=== PATIENT | female | born 1960 | race Caucasian/White ===

== ENCOUNTER 2018-05-18 05:36 | Observation (INO) ==
--- NOTE | 2018-05-12 10:09 | Anesthesiology Consultation ---
Date of Service May 12, 2018 Assessment & Plan Plan: Note sent to PCP re: abnormal kidney function and pre-op EKG. Per PCP, kidney function is chronic, pt will have OP workup with nephro but this is not a contraindication for surgery. "MEDICALLY CLEARED." Chart Review Chart Review: Acceptable Risk for Surgery and Patient NOT seen in Pre Admission Testing History Surgery Operation Date: 05/18/18 07:30 Proposed Procedures p Robot-Assisted Laparoscopic Fundoplication with - Gordo Woodard MD, FACS s Esophagogastroduodenoscopy - Gordo Woodard MD, FACS Height/Weight Height: 5 ft 5 in Weight: 104.326 kg Allergies Allergy/AdvReac Type Severity Reaction Status Date / Time Cephalosporins Allergy Rash Verified 04/27/18 11:27 Sulfa (Sulfonamide Allergy Anaphylaxis Verified 04/27/18 11:27 Antibiotics) Medications Home Medications Medication Instructions Recorded Confirmed Last Taken alprazolam 1 mg PO HS 04/14/18 04/27/18 04/17/18 apixaban [Eliquis] 5 mg PO BID 04/14/18 04/27/18 04/17/18 atorvastatin 80 mg PO HS 04/14/18 04/27/18 04/17/18 cholecalciferol (vitamin D3) 5,000 unit PO QAM 04/14/18 04/27/18 04/17/18 [Vitamin D3] metformin 1 tab PO BID 04/14/18 04/27/18 04/17/18 paliperidone palmitate [Invega 1 dose IM MONTHLY 04/14/18 04/27/18 03/29/18 Sustenna] pantoprazole 40 mg PO BID 04/14/18 04/27/18 04/18/18 trazodone 100 mg PO HS 04/14/18 04/27/18 04/17/18 Past Medical History Medical History Anxiety Bipolar disorder Deep vein thrombosis LLE - RECURRING DVT - ON ELIQUIS - CAUSE UNK AFTER BLOOD WORK UP (FIRST DX 4/5 YEARS AGO) Depression Diabetes mellitus, type 2 NIDDM GERD (gastroesophageal reflux disease) Hiatal hernia History of anesthesia reaction "SLOW TO WAKE WITH C SECTIONS" Hyperlipidemia Iron deficiency anemia Obesity On anticoagulant therapy ELIQUIS DAILY Shortness of breath on exertion Past Family History Family History Mother Family history of diabetes mellitus Brother Family history of diabetes mellitus Sister Family history of diabetes mellitus Father Family history of diabetes mellitus Sister Family history of diabetes mellitus Brother Family history of diabetes mellitus Brother Family history of diabetes mellitus Family/Other Family history of diabetes mellitus Past Surgical History Surgical History History of bilateral tubal ligation History of section X2 History of cholecystectomy History of colonoscopy History of esophagogastroduodenoscopy (EGD) History of sinus surgery History of total abdominal hysterectomy and bilateral salpingo-oophorectomy Status post myringotomy with tube placement of both ears Social History Smoking Status: Former smoker tobacco type: e-cigarettes Smoking cigarettes per day: DAILY E CIGS Do You Dip or Chew Tobacco: No Hx Alcohol Use: Yes (RARELY) Alcohol type: beer alcohol intake frequency: other Hx Substance Use: No substance use type: does not use Testing Electrocardiogram Date: 05/09/18 Findings: + NSR @ (83) T wave abnormality, possible lateral ischemia. Laboratory Results 05/09/18 WBC: 7.23 H/H: 12.1/37.2 PLATELETS: 260 SODIUM: 141 POTASSIUM: 5.0 CHLORIDE: 106 CO2: 24 BUN: 22.6 CREATININE: 1.73 GLUCOSE: 105
[2018-05-18] MEDS ORDERED: LR 15ML/HR IV SCH (06:00)
[2018-05-18] MEDS ORDERED: ONDANSETRON INJ 2 MG/ML 2 ML VIAL IV PRN ×2 (06:45→12:45)
[2018-05-18] MEDS ORDERED: ATROPINE SULFATE 0.1 MG/ML 10ML SYR IV PRN ×2 (06:45→12:44)
[2018-05-18] MEDS ORDERED: HYDROmorphone INJ 1 MG/ML SYRINGE IV PRN ×2 (06:45→12:45)
[2018-05-18] MEDS ORDERED: fentaNYL citrate 100 MCG/2 ML VIAL IV PRN ×2 (06:45→12:45)
[2018-05-18] MEDS ORDERED: ePHEDrine sulfate 50 MG/ML AMP IV PRN ×2 (06:45→12:44)
--- NOTE | 2018-05-18 06:51 | History & Physical Bridge Note ---
Date of Service May 18, 2018 History & Physical Bridge Note I have examined the patient, reviewed the History & Physical and in the interval since the performance of the History & Physical I have noted the following changes of clinical significance: no changes noted
[2018-05-18] MEDS ORDERED: DEXAMETHASONE SOD INJ 4 MG/ML VIAL ONE (07:08)
[2018-05-18] MEDS ORDERED: MIDAZOLAM HCL 1 MG/ML 2ML VIAL ONE (07:08)
[2018-05-18] MEDS ORDERED: fentaNYL citrate 100 MCG/2 ML VIAL ONE ×2 (07:08→12:38)
[2018-05-18] MEDS ORDERED: GLYCOPYRROLATE 0.2 MG/ML VIAL ONE ×2 (07:08→08:33)
[2018-05-18] MEDS ORDERED: PROPOFOL IV EMULSION 10 MG/ML 20 ML VIAL IV ONE (07:08)
[2018-05-18] MEDS ORDERED: ONDANSETRON INJ 2 MG/ML 2 ML VIAL ONE ×2 (07:08→08:34)
[2018-05-18] MEDS ORDERED: NEOSTIGMINE METHYLSULFATE 5 MG/5 ML SYR ONE (07:08)
[2018-05-18] MEDS ORDERED: LIDOCAINE HCL 2% 2 ML VIAL/AMP(20MG/ML) INFIL ONE (07:08)
[2018-05-18] MEDS ORDERED: CLINDAMYCIN 900 MG in DEXTROSE 5% 100 ML IV ONE (07:15)
[2018-05-18] MEDS ORDERED: BUPIVACAINE LIPOSOME 1.3% 266 MG/20 ML VIAL ONE (07:33)
[2018-05-18] MEDS ORDERED: SODIUM CHLORIDE 0.9% PF 50 ML VIAL ONE (07:33)
[2018-05-18] MEDS ORDERED: BUPIVACAINE 0.5 % 5 MG/1 ML MPF 30ML VIAL ONE (07:33)
[2018-05-18] MEDS ORDERED: PHENYLEPHRINE 100MCG/ML 5ML SYR ONE (08:34)
[2018-05-18] MEDS ORDERED: ePHEDrine sulfate 50 MG/ML SYR ONE (08:34)
[2018-05-18] MEDS ORDERED: HYDROmorphone INJ 2 MG/ML SYR/VIAL ONE (09:26)
[2018-05-18] MEDS ORDERED: PHENYLEPHRINE HCL 10 MG/ML VIAL ONE (09:38)
[2018-05-18] MEDS ORDERED: ROCURONIUM BROMIDE 10 MG/ML 5 ML VIAL ONE (11:27)
--- NOTE | 2018-05-18 11:27 | Post Operative Brief Note ---
Immediate Post Op Note v1 Date of Surgery May 18, 2018 Pre & Post Diagnosis Operation Date: 05/18/18 07:30 Pre-Op Diagnosis: Chronic GERD, Hiatal Hernia Post-Op Diagnosis: Chronic GERD, Hiatal Hernia Procedure Operation Date: 05/18/18 07:30 Actual Procedures p Robot-Assisted Laparoscopic Partial Fundoplication with(Not Applicable) - Gordo Woodard MD, FACS s Esophagogastroduodenoscopy - Gordo Woodard MD, FACS Surgeon Gordo Woodard MD, FACS [employer] Coord[employer] Jarrod COBB Estimated Blood Loss 10 Findings Consistent with Post-Op Diagnosis Drains Hernandez Catheter
[2018-05-18] MEDS ORDERED: METOCLOPRAMIDE HCL INJ 5 MG/ML 2 ML VIAL IV ONE (11:50)
[2018-05-18] MEDS ORDERED: SUGAMMADEX SODIUM 200 MG/2 ML VIAL IV ONE (11:56)
--- NOTE | 2018-05-18 12:24 | XRay Report ---
XR chest 1V portable CLINICAL HISTORY: s/p Emilee COMPARISON STUDY: Chest CT May 09, 2018. FINDINGS: Pneumomediastinum and bibasilar opacities are noted. There is pulmonary vascular congestion . A trace left apical pneumothorax with pleural separation of 3 mm is noted. There is no right pneumo thorax. There may be a trace left pleural effusion. IMPRESSION: 1. Trace left apical pneumothorax. 2. Pneumomediastinum, an expected postoperative finding. 3. Moderate bibasilar opacities. Electronically signed by: Wilbur White M.D. 05/18/2018 12:22 PM
[2018-05-18] MEDS ORDERED: MoRPHine SULFATE 4 MG/ML 1 ML CARP\\VIAL IV PRN (13:26)
--- NOTE | 2018-05-18 13:34 | Anesthesiology Progress Note ---
Date of Service May 18, 2018 Anesthesia Post Procedure Vital Signs Vital Signs: Temp Pulse Pulse Resp BP Pulse Ox 05/18/18 12:45 36.6 C 74 15 112/59 L 96 05/18/18 12:35 74 19 115/60 97 05/18/18 12:25 76 21 117/71 99 05/18/18 12:15 72 18 130/66 99 05/18/18 12:05 36.1 C L 79 18 131/73 99 05/18/18 06:13 36.4 C L 69 20 121/67 95 Pain Intensity Abdomen: Pain Intensity: 5 Notes Mental Status: alert / awake / arousable and participated in evaluation Patient Amnestic to Procedure: Yes Nausea / Vomiting: adequately controlled Pain: adequately controlled Airway Patency, RR, SpO2: stable & adequate BP & HR: stable & adequate Hydration State: stable & adequate Anesthetic Complications: no major complications apparent and Pt Satisfied with anesthetic care Notes: At the end of the procedure, patient was spontaneously breathing but with less than optimal tidal volumes. She had received multiple doses of rocuronium during the procedure for paralysis. She did have 4/4 twitches on the train of four at the end of the case and was fully reversed. She appeared weak to us on physical exam as she was barely opening her eyes and had a very weak gun fitter strength. Patient was kept in the OR thirty minutes after procedure end but we felt she did not meet extubation criteria. I decided to administer sugammadex and within 60 seconds patient was awake, alert and tidal volumes in the 400s. She was easily extubated and taken to recovery.
[2018-05-18 14:21] LABS: Hematocrit (blood only) 35.9 % (37-47); Hemoglobin 11.8 g/dL (12.0-16.0); Mean Corpuscular Hgb Conc 32.9 g/dL (32-36); Mean Corpuscular Volume 100.6 fL (80-100); Mean Platelet Volume 10.4 fL (7.4-10.4); Platelet Count 225 K/uL (130-400); RDW Coefficient of Variation 12.7 % (11.5-14.5); RDW Standard Deviation 46.9 fL (36.4-46.3); Red Blood Count 3.57 M/uL (4.2-5.4); White Blood Count 13.06 K/uL (4.8-10.8)
[2018-05-18 14:31] LABS: INR 1.1 (0.9-1.1)
[2018-05-18] MEDS: D5W AND 1/2NSS 1,000 ML IV SCH ×2 (14:44→23:59)
[2018-05-18 14:50] LABS: Creatinine Clr Calc Pharmacy 44.2 ml/min; Est GFR (African American) 38.4; Est GFR (Non-African American) 33.1
[2018-05-18] MEDS: OXYCODONE HCL IR 5 MG TAB (IMMEDIATE RELEASE) PO PRN (15:44)
[2018-05-18] MEDS: ACETAMINOPHEN 1,000 MG/100 ML VIAL IV SCH ×2 (15:46→21:56)
[2018-05-18] MEDS: ONDANSETRON INJ 2 MG/ML 2 ML VIAL IV SCH ×3 (16:41→23:54)
--- NOTE | 2018-05-18 19:50 | Operative Report ---
DATE OF OPERATION: 05/18/2018 PREOPERATIVE DIAGNOSIS: Large hiatal hernia with gastroesophageal reflux disease. POSTOPERATIVE DIAGNOSIS: Large hiatal hernia with gastroesophageal reflux disease. PROCEDURE PERFORMED: 1. Robotic-assisted laparoscopic repair of hiatal hernia. 2. Reinforcement with Ovitex absorbable patch. 3. Partial fundoplication. 4. On table esophagoscopy. SURGEON: Gordo Woodard MD. HISTORIOGRAPHY TEACHER: JORDYN Romero. (Mr. Garay was present for the entire case and was at the patient's bedside while I was at the console and closed the skin incisions at conclusion). SPECIFICS OF PROCEDURE AND FINDINGS: This is a 58-year-old female who has a large hiatal hernia. She has marked reflux. She was sent to me by Dr. Jose Stringer as she was markedly symptomatic. For this reason, we elected to proceed with a repair. On 05/18/2018, the patient underwent an uncomplicated repair of her hernia. We took down a large sac without difficulty, identified both vagus nerves. The sac was removed. It was a large defect that we repaired, primarily it was under really no tension. I did reinforce this posteriorly with an Ovitex absorbable patch. We then did a partial fundoplication without difficulty. Esophagoscopy looked quite good postoperatively and there were no leaks noted. DESCRIPTION OF PROCEDURE: The patient was brought to the operating room and laid in supine position. General anesthesia induced. Endotracheal intubation was performed. After appropriate monitoring lines and drains have been placed and appropriate timeout had been called, patient was prepped and draped in usual sterile fashion. After antibiotics had been given, a 5 mm port was placed several centimeters above the umbilicus. This went in without difficulty with visualization using the camera through the 5 mm trocar. Once we entered, we insufflated CO2. An 8 mm trocar was placed in the costal margin in both mid clavicular lines and then the 5 mm port was switched out to a 12 mm camera port. Two 5 mm ports were placed laterally and inferiorly. The right one was used for a pretzel liver retractor, which was inserted. The right was for the third arm of the robot. The patient was placed in reverse Trendelenburg position and the robot was docked. We immediately started on the greater curvature by taking down the short gastrics using a vessel sealer. I took this all the way down to the crura on the left and we actually started taking down the sac at this point. I took this along posteriorly quite nicely and then switched retractors as we were pulling the stomach to the left and then went down and was able to easily get around the esophagus and identified the crura quite nicely. We put in a 1-inch [place] and used it for retraction. I then meticulously took down the entire sac getting into a bloodless plane and taken down, identifying the esophagus and we took this down quite high in the chest. We identified the vagus nerve posteriorly and anteriorly. I then took down the gastroesophageal fat pad and delivered this off the field as well as taking down this entire sac and removing it from the field. I used an Endobag to do this. I then used 4 separate [id number] sutures of 0 silk to reapproximate the crura posteriorly. This came out quite nicely. I then pulled the posterior fundus down and sutured it with 3 separate 2-0 silk sutures to the right portion of the esophagus. I did the same on the left with the anterior fundus. We did do a shoeshine maneuver before to make sure we had no redundant stomach behind this. I did use the uppermost sutures were used to suture the stomach in the esophagus to the diaphragmatic crura anteriorly. It should be noted that we used a 4 x 6 cm Ovitex absorbable patch and placed it on our posterior repair and held it in place with 2-0 Vicryl sutures. The fundoplication laid on this nicely and it was not touching the esophagus. We then undocked the robot and took the patient back in supine position and I placed the esophagoscope without difficulty. This went nicely through the opening through the GE junction. I then did a retroflexion and could see the fundoplication nicely. We then insufflated air into the stomach and put saline around the repair with the laparoscope and could see that there was no leaking of air. We then sucked the stomach out and removed the esophagoscope. Two 0 PDS sutures were used to close the assistance port and the camera port. It should be noted, we placed a 12 mm assistance port to the left periumbilical area. After both of these had been closed, we then used 4-0 Monocryl in running subcuticular fashion to approximate the wound edges of all the incisions after we had decompressed the pneumoperitoneum, we removed all the carbon dioxide. I attest to the content of the Intraoperative Record and any orders documented therein. Any exception s are noted below.
[2018-05-18] MEDS: METOCLOPRAMIDE HCL INJ 5 MG/ML 2 ML VIAL IV SCH (20:54)
[2018-05-18] MEDS ORDERED: ATORVASTATIN 40 MG TAB PO SCH (21:00)
[2018-05-18] MEDS ORDERED: TRAZODONE HCL 100 MG TAB PO SCH (21:00)
[2018-05-18] MEDS ORDERED: ALPRAZolam 0.5 MG TABLET PO SCH (21:00)
[2018-05-18] MEDS: DOCUSATE SODIUM 100 MG CAP PO SCH (21:54)
[2018-05-19] MEDS: METOCLOPRAMIDE HCL INJ 5 MG/ML 2 ML VIAL IV SCH (05:12)
[2018-05-19] MEDS: ONDANSETRON INJ 2 MG/ML 2 ML VIAL IV SCH ×3 (05:12→12:20)
[2018-05-19] MEDS: ACETAMINOPHEN 1,000 MG/100 ML VIAL IV SCH (05:22)
--- NOTE | 2018-05-19 08:48 | Fluoroscopy Report ---
FL barium swallow CLINICAL HISTORY: s/p katty COMPARISON STUDY: Outside study performed March 2018 FLUOROSCOPY TIME: 1.2 minutes. NUMBER OF FLUOROSCOPIC IMAGES: 8 FINDINGS: The patient swallowed oral Optiray 300. There was no contrast extravasation. There are post surgical changes of a Katty fundoplication. There is no evidence for esophageal obstruction. IMPRESSION: No complications identified status post Katty fundoplication. Electronically signed by: Mehrdad Marcano M.D. 05/19/2018 8:46 AM
[2018-05-19] MEDS ORDERED: ENOXAPARIN INJ 40 MG/0.4 ML SYR SQ SCH (09:00)
[2018-05-19] MEDS ORDERED: CHOLECALCIFEROL 1,000 UNITS TAB PO SCH (09:00)
[2018-05-19] MEDS: DOCUSATE SODIUM 100 MG CAP PO SCH (09:07)
[2018-05-19] MEDS: D5W AND 1/2NSS 1,000 ML IV SCH (09:27)
--- NOTE | 2018-05-19 13:32 | Anesthesiology Progress Note ---
Date of Service May 19, 2018 Anesthesia Post Procedure Vital Signs Vital Signs: Temp Pulse Pulse Resp BP Pulse Ox 05/19/18 13:17 36.3 C L 78 82 16 92/61 L 90 05/19/18 07:39 36.3 C L 82 16 92/61 L 90 05/19/18 03:07 37.4 C 78 18 113/72 92 05/18/18 23:29 92 05/18/18 23:28 37.1 C 79 18 103/68 86 L 05/18/18 16:17 36.2 C L 78 16 162/84 H 92 05/18/18 15:34 34.8 C L 78 28 H 163/88 H 91 05/18/18 14:34 36.2 C L 73 19 136/80 97 05/18/18 13:45 127 H 18 127/76 93 Pain Intensity Abdomen: Pain Intensity: 5 Notes Mental Status: alert / awake / arousable and participated in evaluation Patient Amnestic to Procedure: Yes Nausea / Vomiting: adequately controlled Pain: adequately controlled Airway Patency, RR, SpO2: stable & adequate BP & HR: stable & adequate Hydration State: stable & adequate Anesthetic Complications: no major complications apparent and Pt Satisfied with anesthetic care
[2018-05-19] MEDS: OXYCODONE HCL IR 5 MG TAB (IMMEDIATE RELEASE) PO PRN (13:42)
[2018-05-19] MEDS ORDERED: ACETAMINOPHEN 325 MG TAB PO SCH (14:00)
--- NOTE | 2018-05-20 00:37 | Discharge Summary ---
DISCHARGE DIAGNOSIS: Large hiatal hernia with large amount of stomach in the patient's chest. HOSPITAL COURSE: Mana Escobar is a 58-year-old female who has an extremely large hiatal hernia with reflux. She was sent to me by Dr. Jose Stringer and I took her to the operating room on 05/18/2018 electively and reduced this huge hernia. I then performed an uncomplicated resection of her hernia sac and then performed a repair and reinforced this with mesh. We then did a Toupet partial fundoplication to protect the esophagus from this mesh. The on-table esophagoscopy on 05/18/2018 looked quite good and I was happy with the barium swallow the following day. She had no contrast extravasation and there was no evidence of esophageal obstruction or reflux. Patient looked quite good, was quite eager to go home, was discharged on postoperative day 1. We will see her back in 2 weeks. Wound care instruction and in particular dietary restrictions were discussed in detail.
== END 2018-05-19 14:11 | disposition home or self-care (01) ==
LOC: 3N 05:36 → ASU 05:36